=== PATIENT | male | born 1965 | race Caucasian/White ===

== ENCOUNTER 2017-07-16 04:40 | Emergency (ER) | payer MEDICAID ==
[~2017-07-16] VITALS: Ht 175.3 cm; Wt 102.9 kg
[~2017-07-16 04:40] MED LIST: OFLO5DRO7
[2017-07-16 05:17] LABS: DAU SCREEN DISCLAIMER
[2017-07-16] MEDS ORDERED: ASPIRIN 81 MG TABLET CHEW ONE (05:20)
[2017-07-16] MEDS ORDERED: LORazepam 2 MG/ML, 1ML ONE (05:20)
[2017-07-16] MEDS ORDERED: SODIUM CHLORIDE FLUSH 10ML SYR IVF ONE (05:30)
[2017-07-16] MEDS ORDERED: ASPIRIN 81 MG TABLET CHEW PO ONE (05:30)
[2017-07-16] MEDS ORDERED: SODIUM CHLORIDE 0.9% 1,000ML IVBOLUS ONE ×2 (05:30→06:00)
[2017-07-16] MEDS ORDERED: LORazepam 2 MG/ML, 1ML IVPush ONE (05:30)
[2017-07-16 05:41] LABS: HEMATOCRIT 43.6 % (39.2-51.8); HEMOGLOBIN 14.9 g/dL (13.7-18.0); WHITE BLOOD COUNT 7.5 x10^3/uL (3.4-10)
[2017-07-16 05:51] LABS: BLOOD UREA NITROGEN 20 mg/dL (7-18)
[2017-07-16 05:52] LABS: ACETAMINOPHEN < 2 mcg/mL (10-30)
[2017-07-16 05:55] LABS: IS PT STATUS REG ER OR PRE ER? YES
[2017-07-16 07:30] VITALS: BP 115/68
[2017-07-16 09:54] LABS: IS PT STATUS REG ER OR PRE ER? YES
== END 2017-07-16 12:57 | disposition home or self-care (01) ==
LOC: ED 05:15
DX: R07.89 Other chest pain (principal); F32.1 Major depressive disorder, single episode, moderate
CPT/HCPCS: 36415; 71010; 80048; 80307; 80329; 82040; 84484; 85025; 93005; 96361; 96374; 99285; J2060; J7030; G0479; G0480